=== PATIENT | female | born 1980 | race African-American/Black ===

== ENCOUNTER 2018-05-12 11:23 | Emergency (ER) | payer MEDICAID, OTHER ==
[~2018-05-12] VITALS: Ht 165.1 cm; Wt 97.2 kg
[2018-05-12] MEDS ORDERED: IBUPROFEN 800MG TABLET PO ONE (13:00)
[2018-05-12 14:31] VITALS: BP 137/86
== END 2018-05-12 14:33 | disposition home or self-care (01) ==
LOC: ER 11:48
DX: M25.571 Pain in right ankle and joints of right foot (principal); I10 Essential (primary) hypertension; Z88.0 Allergy status to penicillin
CPT/HCPCS: 73610; 73630; 81025; 99283